=== PATIENT | male | born 1945 | race Caucasian/White ===

== ENCOUNTER 2022-07-03 10:35 | Day surgery (SDC) | payer MEDICARE, OTHER ==
[2022-07-02 14:45] LABS: BASOPHILS # (AUTO) 0.1 X10'3 (0-0.2); BASOPHILS % (AUTO) 0.6 % (0-1); EOSINOPHILS # (AUTO) 0.1 X10'3 (0-0.9); EOSINOPHILS % (AUTO) 0.7 % (0-6); LYMPHOCYTES # (AUTO) 1.2 X10'3 (1.1-4.8); LYMPHOCYTES % (AUTO) 13.3 % (21-51); MEAN CORPUSCULAR HEMOGLOBIN 33.2 PG (27.0-31.0); MEAN CORPUSCULAR HGB CONC 33.3 g/dL (33.0-36.5); MEAN CORPUSCULAR VOLUME 99.8 FL (78-98); MEAN PLATELET VOLUME 8.6 FL (7.4-10.4); MONOCYTES # (AUTO) 0.7 X10'3 (0-0.9); MONOCYTES % (AUTO) 7.3 % (2-12); NEUTROPHILS # (AUTO) 7.2 X10'3 (1.8-7.7); NEUTROPHILS % (AUTO) 78.1 % (42-75); PLATELET COUNT 250 X10'3 (140-440); RED BLOOD COUNT 4.21 X10'6 (4.70-6.10); RED CELL DISTRIBUTION WIDTH 14.1 % (11.5-14.5); WHITE BLOOD COUNT 9.2 X10'3 (4.5-11.0)
[2022-07-02 14:55] LABS: APTT 27 SECONDS (22-32)
[2022-07-02 14:58] LABS: ALBUMIN 2.9 G/DL (3.4-5.0); ANION GAP 10 (8-16); BLOOD UREA NITROGEN 35 MG/DL (7-18); BUN/CREATININE RATIO 23.2 (5.4-32.0); CALCIUM 8.7 MG/DL (8.5-10.1); CHLORIDE 106 MMOL/L (99-107); CHOL/HDL RATIO 2.7 (0.00-4.99); CHOLESTEROL 125 MG/DL (0-200); CREATININE 1.51 MG/DL (0.60-1.10); GLUCOSE 216 MG/DL (70-104); HDL CHOLESTEROL 46 MG/DL (35-60); LDL CHOLESTEROL 66 MG/DL (50-100); POTASSIUM 4.2 MMOL/L (3.5-5.1); SODIUM 139 MMOL/L (135-145); TOTAL CARBON DIOXIDE 23.5 MMOL/L (24-32); TRIGLYCERIDES 88 MG/DL (20-135); eGFR 45 ML/MIN
[~2022-07-03] VITALS: Ht 172.7 cm; Wt 110.3 kg
[2022-07-03] VITALS (13 sets, daily range): BP systolic 84–131; BP diastolic 40–77
[~2022-07-03 10:35] MED LIST: ACYC-129 PO; ASCO-248 PO; ASPI-611 PO; ATOR20TA66 PO; CHOL100046 PO; CLOP75TA34 PO; DULO-31 PO; INSU100V36 SQ; LANTUS SQ; MECL-226 PO; MULT-933 PO; OMEG500C PO
[2022-07-03] MEDS ORDERED: diphenhydrAMINE 25mg capsule PO PRN (10:55)
[2022-07-03] MEDS ORDERED: normal saline 1,000 ML IV SCH (10:55)
[2022-07-03] MEDS ORDERED: LORazepam 0.5 MG tablet PO PRN (10:55)
[2022-07-03] MEDS ORDERED: fentaNYL/PF 50MCG/1 ML 2ML syringe ONE (12:51)
[2022-07-03] MEDS ORDERED: midazolam 1 mg/ML 2ml injection ONE (12:51)
[2022-07-03] MEDS ORDERED: iohexol 350MG/ML 100ml bottle IV ONE ×2 (12:51→14:10)
[2022-07-03] MEDS ORDERED: LIDOcaine 1% 30ml preserv. free vial ONE (12:52)
[2022-07-03] MEDS ORDERED: NITR0.4T51 SL (13:19)
[2022-07-03] MEDS ORDERED: OMEG-209 PO (13:19)
[2022-07-03] MEDS ORDERED: CARV6.253 PO (13:19)
[2022-07-03] MEDS ORDERED: FLO0.4C PO (13:19)
[2022-07-03] MEDS ORDERED: CYAN250010 PO (13:19)
[2022-07-03] MEDS ORDERED: METF-900 PO (13:19)
[2022-07-03] MEDS ORDERED: CHOL125C7 PO (13:19)
[2022-07-03] MEDS ORDERED: BUPR300T53 PO (13:19)
[2022-07-03] MEDS ORDERED: ACET-2971 PO (13:19)
[2022-07-03] MEDS ORDERED: [UNRECOGNIZED DRUG - CODE] PO (13:19)
[2022-07-03] MEDS ORDERED: TURM500C4 PO (13:19)
[2022-07-03] MEDS ORDERED: LANTUS SQ (13:19)
[2022-07-03] MEDS ORDERED: MELA10CA2 PO (13:19)
[2022-07-03] MEDS ORDERED: LOSA25TA41 PO (13:19)
[2022-07-03] MEDS ORDERED: MAGN400C PO (13:19)
[2022-07-03] MEDS ORDERED: ZINC100T2 PO (13:19)
[2022-07-03] MEDS ORDERED: hydrALAZINE 20mg/ml inj. IV ONE (13:57)
[2022-07-03] MEDS ORDERED: heparin 1,000unit/ml 10ml vial 10 ML ONE ×2 (14:10→14:45)
[2022-07-03] MEDS ORDERED: iohexol 350 MG/ML 50ML vial IV ONE ×2 (14:58→15:07)
[2022-07-03] MEDS ORDERED: HYDROcodone/acetaminophen 5mg/325mg tablet PO PRN (15:55)
[2022-07-03] MEDS ORDERED: HYDROcodone/acetaminophen 10/325mg tab PO PRN (15:55)
--- NOTE | 2022-07-03 18:25 | NUR ---
Report given to Marci LOPEZ and care transferred. Pt appears in stable condition. Addendum: 07/03/22 at 1826 by William Alvarenga RN Amended: Links added.
--- NOTE | 2022-07-03 18:30 | NUR ---
Assumed care of patient from JESSICA Cosme. Femstop has been released per md, site checked and no bleeding or increase in size of hematoma at this time. Pt c/o of still being cold, given ivy hugger with heat on. is at bedside. Will continue q15 mins checks of the groin. Peripheral pulses intact. VSS.
== END 2022-07-03 21:35 | disposition home or self-care (01) ==
LOC: SSTAY O 10:35
PROVIDERS: ATTEND Student in an Organized Health Care Education/Training Program
DX: R94.39 Abnormal result of other cardiovascular function study (principal); I25.10 Atherosclerotic heart disease of native coronary artery without angina pectoris; I25.810 Atherosclerosis of coronary artery bypass graft(s) without angina pectoris; I11.0 Hypertensive heart disease with heart failure; I50.9 Heart failure, unspecified; I73.9 Peripheral vascular disease, unspecified; E78.5 Hyperlipidemia, unspecified; Z79.01 Long term (current) use of anticoagulants; Z79.899 Other long term (current) drug therapy; Z79.82 Long term (current) use of aspirin; Z98.890 Other specified postprocedural states
CPT/HCPCS: 36415; 80048; 80061; 85025; 85610; 85730; 93005; 93455; 99152; 99153; C1725; C1751; C1760; C1769; C1894; C9600; J0360; J1644; J2250; J3010; J3490; J7030; Q0163; Q9967; 92920; 92921; 93454; A4620; A6258; A6449

== ENCOUNTER 2023-04-14 15:13 | Emergency (ER) | payer MEDICARE, OTHER ==
[~2023-04-14] VITALS: Ht 172.7 cm; Wt 109.1 kg
[~2023-04-14 15:13] MED LIST changes: +ACET-2971 PO; -ACYC-129 PO; -ASCO-248 PO; +BUPR300T53 PO; +CARV6.253 PO; -CHOL100046 PO; +CHOL125C7 PO; +CYAN250010 PO; -DULO-31 PO; +FISH OIL 1,3601 EAC1 PO; +FLO0.4C PO; +LOSA25TA41 PO; +MAGN400C PO; -MECL-226 PO; +MELA10CA2 PO; +METF-900 PO; +NITR0.4T51 SL; +TURM500C4 PO; +ZINC100T2 PO; +[UNRECOGNIZED DRUG - CODE] PO
[2023-04-14 15:18] VITALS: TEMP 98.7
[2023-04-14 15:50] LABS: BASOPHILS # (AUTO) 0.1 X10'3 (0-0.2); BASOPHILS % (AUTO) 0.7 % (0-1); EOSINOPHILS # (AUTO) 0.2 X10'3 (0-0.9); EOSINOPHILS % (AUTO) 2.6 % (0-6); HEMATOCRIT 43.4 % (42.0-52.0); HEMOGLOBIN 14.3 g/dl (14.0-17.9); LYMPHOCYTES # (AUTO) 0.9 X10'3 (1.1-4.8); LYMPHOCYTES % (AUTO) 11.4 % (21-51); MEAN CORPUSCULAR HEMOGLOBIN 33.7 PG (27.0-31.0); MEAN CORPUSCULAR VOLUME 102.2 FL (78-98); MEAN PLATELET VOLUME 8.3 FL (7.4-10.4); MONOCYTES # (AUTO) 0.6 X10'3 (0-0.9); MONOCYTES % (AUTO) 7.3 % (2-12); NEUTROPHILS # (AUTO) 6.5 X10'3 (1.8-7.7); PLATELET COUNT 254 X10'3 (140-440); RED BLOOD COUNT 4.25 X10'6 (4.70-6.10); RED CELL DISTRIBUTION WIDTH 13.7 % (11.5-14.5); WHITE BLOOD COUNT 8.3 X10'3 (4.5-11.0)
[2023-04-14 16:08] LABS: ALANINE AMINOTRANSFERASE 33 U/L (12-78); ALBUMIN/GLOBULIN RATIO 0.9 (1.1-1.5); ALKALINE PHOSPHATASE 59 IU/L (46-116); ANION GAP 11 (8-16); ASPARTATE AMINO TRANSFERASE 21 U/L (10-37); BILIRUBIN,TOTAL 0.4 MG/DL (0.1-1.0); BLOOD UREA NITROGEN 35 MG/DL (7-18); BUN/CREATININE RATIO 22.9 (10.0-20.0); CALCIUM 8.6 MG/DL (8.5-10.1); CHLORIDE 104 MMOL/L (99-107); CREATININE 1.53 MG/DL (0.60-1.10); GLUCOSE 183 MG/DL (70-104); POTASSIUM 5.6 MMOL/L (3.5-5.1); SODIUM 140 MMOL/L (135-145); TOTAL CARBON DIOXIDE 25.3 MMOL/L (24-32); TOTAL PROTEIN 6.3 G/DL (6.4-8.2); eCRCL 40 ML/MIN; eGFR 45 ML/MIN
[2023-04-14 16:15] LABS: PRO BRAIN NATRIURETIC PEPTIDE 632 PG/ML (0-450)
[2023-04-14] MEDS ORDERED: ipratropium/albuterol 3ml nebule NEB ONE (18:25)
[2023-04-14] MEDS ORDERED: normal saline 1000ML IV soln IVB ONE (18:25)
[2023-04-14] MEDS ORDERED: ALBU6.7H14 INH (18:25)
[2023-04-14 18:41] VITALS: PULSE 71; RESP 16; O2SAT 94
[2023-04-14 18:48] VITALS: PULSE 70; RESP 14; O2SAT 97
[2023-04-14 19:19] VITALS: BP 163/53; PULSE 70; RESP 15; O2SAT 96
== END 2023-04-14 19:22 | disposition home or self-care (01) ==
LOC: ER 15:14
DX: R06.00 Dyspnea, unspecified (principal); E87.6 Hypokalemia; E86.0 Dehydration; I11.9 Hypertensive heart disease without heart failure; E11.9 Type 2 diabetes mellitus without complications; F31.9 Bipolar disorder, unspecified; Z79.899 Other long term (current) drug therapy; Z79.1 Long term (current) use of non-steroidal anti-inflammatories (NSAID); Z79.2 Long term (current) use of antibiotics
CPT/HCPCS: 36415; 71045; 80053; 83880; 84484; 85025; 93005; 94640; 99285; J7030; J7040; 94760